=== PATIENT | male | born 1985 | race Caucasian/White ===

== ENCOUNTER 2023-12-09 18:57 | Emergency (ER) | payer OTHER, SELFPAY ==
[2023-12-09 19:16] VITALS: BP 150/89; PULSE 79; RESP 16; TEMP 36.6; O2SAT 95; BMI 31.0
--- NOTE | 2023-12-09 20:17 | ED.GENADULT ---
HPI - General Adult General Date Seen: 12/09/23 Chief complaint: Laceration/Wound Stated complaint: Forehead lac-lawn aerator Time Seen by Provider: 12/09/23 19:50 Source: patient Mode of arrival: ambulatory Limitations: no limitations History of Present Illness HPI narrative: Patient is a 38-year-old male who hit his head on the lawn aerater blade in his garage. No loss of consciousness. Sustained a laceration to his forehead which he says bled quite a bit initially but it has slowed down now. Last tetanus in 2022. No other injuries or complaints. Related Data Home Medications ?Medication ?Instructions ?Recorded ?Confirmed No Known Home Medications 12/09/23 12/09/23 Allergies Allergy/AdvReac Type Severity Reaction Status Date / Time No Known Drug Allergies Allergy Verified 12/09/23 19:19 Exam Narrative: Exam Narrative: Vital signs reviewed In general, alert, nontoxic male. Head: He has a zigzag type laceration on the left floor head, bleeding controlled. There is a tiny adjacent laceration which is a few mm in size. The larger laceration is about a cm and half. Eyes: Pupils are equal, reactive, extraocular movements are full. ENT: No other facial trauma, no bony tenderness or deformity. Neurologic: He is alert, conversant, gait stable. Const: Vital Signs, click to edit/add: Vital Signs - 24 hr 12/09/23 19:16 Temperature 98 F Pulse Rate [Pulse Oximeter] 79 Respiratory Rate 16 Blood Pressure [Ri ght Upper Arm] 150/89 H Pulse Oximetry 95 Oxygen Delivery Me thod Room Air Documenting provider has reviewed patient's vital signs: yes Course Course ED Course: Wound was cleaned and explored, I do not see any evidence of foreign body. The wound edges actually approximated very nicely and I think it would be reasonable to glue this, he is comfortable with that. Procedure note: Wound cleaned and explored as outlined above. Edges approximated and closed with Dermabond. Tolerated well without immediate complication. Discussed routine wound care, skin adhesive care. Return for signs of infection, ibuprofen and/or Tylenol if needed. Vital Signs Vital signs: Initial Vital Signs Temperature 98 F 12/09/23 19:16 Temperature Source Temporal Artery Scan 12/09/23 19:16 Pulse Rate 79 12/09/23 19:16 Respiratory Rate 16 12/09/23 19:16 Blood Pressure 150/89 H 12/09/23 19:16 Blood Pressure Mean 109 H 12/09/23 19:16 Blood Pressure Position Sitting 12/09/23 19:16 Pulse Oximetry 95 12/09/23 19:16 Oxygen Delivery Method Room Air 12/09/23 19:16 Vital Signs Temperature 98 F 12/09/23 19:16 Pulse Rate 79 12/09/23 19:16 Respiratory Rate 16 12/09/23 19:16 Blood Pressure 150/89 H 12/09/23 19:16 Pulse Oximetry 95 12/09/23 19:16 Oxygen Delivery Method Room Air 12/09/23 19:16 Temperature 98 F 12/09/23 19:16 Pulse Rate 79 12/09/23 19:16 Respiratory Rate 16 12/09/23 19:16 Blood Pressure 150/89 H 12/09/23 19:16 Pulse Oximetry 95 12/09/23 19:16 Oxygen Delivery Method Room Air 12/09/23 19:16 Discharge Plan Discharge Clinical Impression: Forehead laceration Patient Disposition: Home, Self-Care Condition: Improved Instructions: Laceration (DC), Skin Adhesive Care (ED) Additional Instructions: Your tetanus is up-to-date, you had 1 in 2022. Routine wound care, return for signs of infection such as swelling, increasing redness or pain. It is okay to shower, please no swimming while this heals. Avoid ointments until healed and you are ready for the glue come off as these will loosen the glue prematurely. If after 7-10 days the wound is healed and the glue is not beginning to slough off, acetone nail Latvian remover or antibiotic ointment will help to loosen the glue. Prescriptions: No Action No Known Home Medications Stand Alone Forms: MyHealth Info Instructions
== END 2023-12-09 20:37 | disposition home or self-care (01) ==
LOC: ED 20:33
PROVIDERS: Emergency Provider Emergency Medicine
DX: S01.81XA Laceration without foreign body of other part of head, initial encounter (principal); W26.9XXA Contact with unspecified sharp object(s), initial encounter
CPT/HCPCS: 12001; 99283; 99284